=== PATIENT | female | born 1975 | race African-American/Black ===

== ENCOUNTER 2020-03-07 04:28 | Emergency (ER) | payer SELFPAY ==
[~2020-03-07] VITALS: Ht 167.6 cm; Wt 118.0 kg
[2020-03-07] MEDS ORDERED: ALBUTEROL (0.083%) 2.5MG/3ML NEB HHN STA (05:29)
[2020-03-07] MEDS ORDERED: IPRATROPIUM BROMIDE (0.02%) 0.5MG/2.5ML NEB HHN STA (05:29)
[2020-03-07] MEDS ORDERED: DEXAMETHASONE 10 MG/ML VIAL IM ONE (05:30)
[2020-03-07 06:49] VITALS: BP 147/93
== END 2020-03-07 06:54 | disposition home or self-care (01) ==
LOC: ER 04:28
DX: J45.901 Unspecified asthma with (acute) exacerbation (principal); I10 Essential (primary) hypertension; E11.9 Type 2 diabetes mellitus without complications; Z88.1 Allergy status to other antibiotic agents; Z88.8 Allergy status to other drugs, medicaments and biological substances
CPT/HCPCS: 71045; 93005; 94640; 96372; 99283; J1100; Z7610

== ENCOUNTER 2020-03-24 21:30 | Emergency (ER) | payer SELFPAY ==
[~2020-03-24] VITALS: Ht 167.6 cm; Wt 122.0 kg
[2020-03-24] MEDS ORDERED: DEXAMETHASONE 4MG/ML 1ML VIAL IM ONE (22:45)
[2020-03-24 23:45] VITALS: BP 140/98
== END 2020-03-24 23:49 | disposition home or self-care (01) ==
LOC: ER 21:30
DX: J18.9 Pneumonia, unspecified organism (principal); Z88.1 Allergy status to other antibiotic agents
CPT/HCPCS: 71045; 96372; 99283; J1100

== ENCOUNTER 2020-04-04 15:35 | Emergency (ER) | payer OTHER, SELFPAY ==
[~2020-04-04] VITALS: Ht 167.6 cm; Wt 68.0 kg
[2020-04-04] MEDS ORDERED: ACETAMINOPHEN 325MG TABLET PO STA (16:03)
[2020-04-04 19:20] LABS: CLARITY URINE CLOUDY (CLEAR); COLOR URINE DARK YELLOW (YELLOW); KETONES URINE 1+ (NEGATIVE); LEUKOCYTE ESTERASE URINE TRACE (NEGATIVE); NITRITE URINE POSITIVE (NEGATIVE); OCCULT BLOOD URINE NEGATIVE (NEGATIVE); PROTEIN URINE 2+ (NEGATIVE); SPECIFIC GRAVITY URINE 1.046 (1.005-1.030)
[2020-04-04 19:35] LABS: BASOPHILS % 0.3 % (0.0-2.0); EOSINOPHILS % 0.1 % (0.0-5.0); HEMATOCRIT. 43.3 % (36.0-48.0); HEMOGLOBIN. 14.3 g/dL (12.0-16.0); LYMPHOCYTES % 19.6 % (20.0-50.0); MEAN CORPUSCULAR HEMOGLOBIN 27.4 pg (28.0-32.0); MEAN CORPUSCULAR VOLUME 83.2 fL (81.0-99.0); MEAN PLATELET VOLUME 8.8 fl (7.4-10.4); MONOCYTES % 4.7 % (2.0-8.0); NEUTROPHILS % 75.3 % (40.0-76.0); PLATELET 242 x1000/uL (130-400); RED BLOOD CELL COUNT 5.21 mill/uL (4.2-5.4); RED CELL DISTRIBUTION WIDTH 15.5 % (11.6-14.6)
[2020-04-04 19:37] LABS: CHLORIDE 98 mEq/L (98-107)
[2020-04-04 20:07] VITALS: BP 121/70
== END 2020-04-04 21:26 | disposition home or self-care (01) ==
LOC: ER 15:35
DX: J18.9 Pneumonia, unspecified organism (principal); Z20.828 Contact with and (suspected) exposure to other viral communicable diseases; N30.00 Acute cystitis without hematuria; R07.89 Other chest pain; Z88.2 Allergy status to sulfonamides; Z88.8 Allergy status to other drugs, medicaments and biological substances
CPT/HCPCS: 36415; 71045; 80053; 81003; 84484; 85025; 93005; 99285; C9803; U0003